=== PATIENT | female | born 1950 | race Caucasian/White ===

== ENCOUNTER 2025-04-03 12:48 | Inpatient (IN) | payer MEDICARE, BC ==
[~2025-04-03] VITALS: Ht 170.2 cm; Wt 56.7 kg
[2025-04-03 13:18] LABS: BASOPHILS % (AUTO) 0.7 % (0.0-2.0); EOSINOPHILS # (AUTO) 0.1 K/uL (0.0-0.7); EOSINOPHILS % (AUTO) 2.3 % (0.0-6.0); HEMATOCRIT 40 % (33-45); HEMOGLOBIN 13.6 g/dL (11.5-14.8); LYMPHOCYTES % (AUTO) 24.5 % (20.0-44.0); MEAN CORPUSCULAR HEMOGLOBIN 29 PG (26.0-33.0); MEAN CORPUSCULAR HGB CONC 34 g/dl (31.0-36.0); MEAN CORPUSCULAR VOLUME 84 fL (82-100); MONOCYTES # (AUTO) 0.3 K/uL (0.1-1.30); MONOCYTES % (AUTO) 6.8 % (2.0-12.0); NEUTROPHILS # (AUTO) 2.8 K/uL (1.8-8.9); NEUTROPHILS % (AUTO) 65.7 % (43.0-81.0); PLATELET COUNT (AUTO) 250 K/uL (150-450); RED BLOOD CELL COUNT(AUTO) 4.76 MIL/uL (4.0-5.2); RED CELL DISTRIBUTION WIDTH 13.6 % (11.5-15.0); WHITE BLOOD COUNT (AUTO) 4.2 K/uL (4.3-11.0)
[2025-04-03] MEDS ORDERED: MORPHINE SULFATE INJ 4 MG/ML DISP.SYRIN ONE (13:21)
[2025-04-03] MEDS ORDERED: ONDANSETRON HCL/PF 4 MG/2 ML VIAL ONE (13:21)
[2025-04-03] MEDS: IV NS 0.9% 1,000 ML BAG IV ONE (13:27)
[2025-04-03] MEDS: MORPHINE SULFATE INJ 2 MG/ML DISP.SYRIN IV ONE ×2 (13:28→15:42)
[2025-04-03] MEDS: ONDANSETRON HCL/PF 4 MG/2 ML VIAL IVP ONE (13:28)
[2025-04-03] MEDS: TDAP [DIPH/PERTUSSIS/TET] 0.5 ML VIAL IM ONE (13:29)
[2025-04-03 13:30] LABS: CALCIUM, SERUM 8.6 mg/dL (8.5-10.1); CREATININE 0.5 mg/dL (0.6-1.3); POTASSIUM 4.2 mmol/L (3.5-5.1)
[2025-04-03] MEDS ORDERED: IOHEXOL-300 100 ML VIAL IV ONE (13:32)
[2025-04-03] MEDS ORDERED: IV NS 0.9% 250 ML IV ONE (13:32)
[2025-04-03 13:37] LABS: INR 0.97 (0.91-1.10); PARTIAL THROMBOPLASTIN TIME 25.6 SEC (24.3-34.3); PROTHROMBIN TIME 10.3 SECS (9.2-11.1)
[2025-04-03] MEDS ORDERED: MORPHINE SULFATE INJ 2 MG/ML DISP.SYRIN ONE (15:32)
[2025-04-03] MEDS ORDERED: [UNRECOGNIZED DRUG - OTHER] PO (16:22)
[2025-04-03] MEDS ORDERED: GINK30CA3 PO (16:22)
[2025-04-03] MEDS ORDERED: MAGN100T PO (16:22)
[2025-04-03] MEDS ORDERED: THIA100T70 PO (16:22)
[2025-04-03] MEDS ORDERED: IBUP-23 PO (16:22)
[2025-04-03] MEDS ORDERED: VITA-339 PO (16:22)
[2025-04-03] MEDS ORDERED: ONDANSETRON HCL/PF 4 MG/2 ML VIAL IVP PRN (17:00)
[2025-04-03] MEDS ORDERED: hydrALAZINE HCL IV 20 MG VIAL IV PRN (17:00)
[2025-04-03] MEDS ORDERED: ENOXAPARIN SODIUM 40 MG/0.4 ML DISP.SYRIN SQ ONE (17:12)
[2025-04-03] MEDS: ENOXAPARIN SODIUM 40 MG/0.4 ML DISP.SYRIN SQ SCH (17:18)
[2025-04-03 20:00] VITALS: BP 132/64; TEMP 99.3; O2SAT 95
[2025-04-04] VITALS (7 sets, daily range): BP systolic 111–139; BP diastolic 54–69; TEMP 98.2–99; O2SAT 96–99
[2025-04-04] MEDS: MORPHINE SULFATE INJ 2 MG/ML DISP.SYRIN IV PRN
[2025-04-04 07:08] LABS: BASOPHILS % (AUTO) 0.4 % (0.0-2.0); EOSINOPHILS # (AUTO) 0.1 K/uL (0.0-0.7); EOSINOPHILS % (AUTO) 2.4 % (0.0-6.0); HEMATOCRIT 38 % (33-45); HEMOGLOBIN 12.5 g/dL (11.5-14.8); LYMPHOCYTES # (AUTO) 0.8 K/uL (0.8-4.8); LYMPHOCYTES % (AUTO) 14.4 % (20.0-44.0); MEAN CORPUSCULAR HEMOGLOBIN 28 PG (26.0-33.0); MEAN CORPUSCULAR HGB CONC 33 g/dl (31.0-36.0); MEAN CORPUSCULAR VOLUME 85 fL (82-100); MONOCYTES # (AUTO) 0.4 K/uL (0.1-1.30); MONOCYTES % (AUTO) 7.6 % (2.0-12.0); NEUTROPHILS # (AUTO) 4.2 K/uL (1.8-8.9); NEUTROPHILS % (AUTO) 75.2 % (43.0-81.0); PLATELET COUNT (AUTO) 198 K/uL (150-450); RED BLOOD CELL COUNT(AUTO) 4.47 MIL/uL (4.0-5.2); RED CELL DISTRIBUTION WIDTH 13.6 % (11.5-15.0); WHITE BLOOD COUNT (AUTO) 5.6 K/uL (4.3-11.0)
[2025-04-04 07:27] LABS: BILIRUBIN,TOTAL 0.7 mg/dL (0.2-1.0); CALCIUM, SERUM 8.4 mg/dL (8.5-10.1); CREATININE 0.5 mg/dL (0.6-1.3); MAGNESIUM 1.9 mg/dL (1.8-2.4); PHOSPHORUS 3.4 mg/dL (2.5-4.9); POTASSIUM 3.5 mmol/L (3.5-5.1); TOTAL PROTEIN, SERUM 5.8 g/dL (6.4-8.2)
[2025-04-04] MEDS: ACETAMINOPHEN 325 MG TABLET PO PRN (22:12)
[2025-04-05] VITALS: BP 115/67; TEMP 98.4; O2SAT 96
[2025-04-05 04:00] VITALS: BP 114/67; TEMP 98.2; O2SAT 96
[2025-04-05 08:00] VITALS: BP 124/57; TEMP 98.2; O2SAT 97
[2025-04-05 12:00] VITALS: BP 119/61; TEMP 97.9; O2SAT 99
[2025-04-05] MEDS ORDERED: LIDO30AD10 TP (12:20)
[2025-04-05] MEDS ORDERED: IBUP-1953 PO (12:20)
[2025-04-05] MEDS ORDERED: PANT40TA2 PO (12:20)
== END 2025-04-05 15:35 | disposition home or self-care (01) | DRG 183 ==
LOC: ER 12:53 → TELE1 18:48 → MEDSG1 04-05 10:39
PROVIDERS: ADMIT Internal Medicine; ATTEND Nurse Practitioner Acute Care
DX: S22.42XA Multiple fractures of ribs, left side, initial encounter for closed fracture (principal); S27.1XXA Traumatic hemothorax, initial encounter; W10.9XXA Fall (on) (from) unspecified stairs and steps, initial encounter; Z88.2 Allergy status to sulfonamides; R07.89 Other chest pain; Y93.9 Activity, unspecified; Y92.009 Unspecified place in unspecified non-institutional (private) residence as the place of occurrence of the external cause
CPT/HCPCS: 36415; 70450-TC; 71045-TC; 71260-TC; 80048-TC; 80053-TC; 83735-TC; 84100-TC; 85025-TC; 85730-TC; 86850-TC; 97112-TC; 97116-TC; 97530-TC; G0378; J1650; J2270; J2405; J7030; J7050; Q9967